=== PATIENT | female | born 1995 | race African-American/Black ===

== ENCOUNTER 2020-11-10 09:25 | Emergency (ER) | payer MEDICAID, OTHER ==
[2020-11-10 09:32] VITALS: BP 128/85
[2020-11-10] MEDS ORDERED: IBUP-1780 PO (09:46)
[2020-11-10] MEDS ORDERED: AMOX1TAB12 PO (09:46)
[2020-11-10] MEDS ORDERED: TRM50T PO (09:46)
--- NOTE | 2020-11-10 09:47 | ED EENT ---
History of Present Illness General Chief Complaint: Dental Problems/Pain Stated Complaint: TOOTH PAIN Nursing Triage Note: Lower molar on left side is broken. Has been causing pain x 1 month, worsening x 4 days. Is having trouble seeing a dentist due to finances. Source: patient History of Present Illness Date Seen by Provider: November 10, 2020 Time Seen by Provider: 09:26 Initial Comments 25 yo female presenting with complaint of pain to left lower mandible from a broken molar. She states the tooth has been broken for more than a year but it was not hurting. Then in the last month it started to hurt and it has been much worse in last 4 days. She has had no fever or chills. She has not been able to see a dentist due to finances and states she has no way to drive to [place] to the [facility] Dental clinic. She denies allergies to medicines. She does take Depo- provera shot for control and is HIV positive but undetectable due to taking antiretroviral medication. She has been trying OTC meds such as ibu profen, acetaminophen and orajel without significant improvement. Timing/Duration: gradual Severity: severe Location: dental Prearrival Treatment: over the counter meds Associated Symptoms: No change in hearing, No cough, No drooling, No ear drainage, No facial pain/swelling, No fever, No malaise, No nasal congestion/drainage, No poor fluid intake, No poor solids intake, No sinus infection, No sore throat; tooth pain; No voice change Allergies and Home Medications Allergies Coded Allergies: No Known Drug Allergies (Unverified , 11/10/20) Home Medications Amoxicillin/Potassium Clav 1 Each Tablet, 1 EACH PO BID Prescribed by: JADEN AVERY on 11/10/20 0946 Ibuprofen 800 Mg Tablet, 800 MG PO Q8H PRN for PAIN Prescribed by: JADEN AVERY on 11/10/20 0946 Tramadol HCl 50 Mg Tablet, 50 MG PO Q6H PRN for PAIN-SEVERE (8-10) Prescribed by: JADEN AVERY on 11/10/20 0947 Patient Home Medication List Home Medication List Reviewed: Yes Review of Systems Review of Systems Constitutional: No chills, No fever Eyes: No Symptoms Reported Ears: No Symptoms Reported Nose: no symptoms reported Mouth: see HPI Throat: no symptoms reported Respiratory: no symptoms reported Cardiovascular: no symptoms reported Gastrointestinal: no symptoms reported Musculoskeletal: no symptoms reported Skin: no symptoms reported Neurological: No Symptoms Reported Past Krdgkbf-Ogaqjv-Lnxpyx Hx Past Med/Social Hx: Reviewed Nursing Past Med/Soc Hx Patient Social History Recent Infectious Disease Expo: No Past Medical History Respiratory: No Cardiac: No Neurological: No HIV/AIDS: Yes (undetectable on meds) Genitourinary: No Gastrointestinal: No Musculoskeletal: No Endocrine: No HEENT: No Cancer: No Physical Exam Vital Signs Vital Signs - First Documented 11/10/20 09:32 Temp 37.0 Pulse 87 Resp 16 B/P (MAP) 128/85 (99) Pulse Ox 97 Height, Weight, BMI Height: '" Weight: lbs. oz. 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 Counseled to take acetaminophen for additional pain control. Call to get in with dentist as soon as possible for definitive care. Departure Impression Primary Impression: Pain due to dental caries Additional Impression: Fracture of tooth enamel and dentin Disposition: HOME, SELF-CARE Condition: Stable Departure-Patient Inst. Decision time for Depature: 09:42 Referrals: [facility] [place] Primary Care Physician Patient Instructions: Dental Pain ED Add. Discharge Instructions: Take the full course of antibiotics to treat for dental infection. Use the pain medicine to help with more severe pain. You may continue with Ibuprofen for inflammation and swelling and Acetaminophen for additional pain effect. Call [facility] Thursday about getting set up with dentist or see dentist of your choice to get definitive care for your tooth. All discharge instructions reviewed with patient and/or family. Voiced understanding. Scripts Tramadol HCl (Tramadol HCl) 50 Mg Tablet 50 MG PO Q6H PRN for PAIN-SEVERE (8-10) for 5 Days, #20 TAB 0 Refills Prov: JADEN AVERY MD 11/10/20 Ibuprofen (Ibuprofen) 800 Mg Tablet 800 MG PO Q8H PRN for PAIN for 10 Days, #30 TAB 0 Refills Prov: JADEN AVERY MD 11/10/20 Amoxicillin/Potassium Clav (Amox Tr-K Clv 875-125 mg Tab) 1 Each Tablet 1 EACH PO BID for dental abscess for 10 Days, #20 TAB 0 Refills Prov: JADEN AVERY MD 11/10/20 Work/School Note: Work Release Form Date Seen in the Emergency Department: November 10, 2020 Return to Work: November 12, 2020 Restrictions: No Restrictions Images Mouth/Nose 1 - Caries, Fracture Tooth, Swelling, Tenderness Progress gums are swollen over part of the fractured tooth with dental caries and tenderness to palpation. JADEN AVERY MD November 10, 2020 09:47
== END 2020-11-10 09:50 | disposition home or self-care (01) ==
LOC: ER FS 09:29
DX: K03.81 Cracked tooth (principal); K02.9 Dental caries, unspecified; Z21 Asymptomatic human immunodeficiency virus [HIV] infection status; Z79.3 Long term (current) use of hormonal contraceptives; Z91.120 Patient's intentional underdosing of medication regimen due to financial hardship
CPT/HCPCS: 99282

== ENCOUNTER 2021-05-27 12:08 | Emergency (ER) | payer MEDICAID ==
[~2021-05-27] VITALS: Ht 170.2 cm; Wt 62.6 kg
[~2021-05-27 12:08] MED LIST: AMOX1TAB12 PO; IBUP-1780 PO; TRM50T PO
[2021-05-27] MEDS ORDERED: KETOROLAC 30 MG/ML VIAL IVP STA (12:24)
[2021-05-27] MEDS ORDERED: LACTATED RINGERS 1,000 ML IV ONE (12:30)
--- NOTE | 2021-05-27 12:31 | ED Abdominal Pain ---
General Chief Complaint: Abdominal/GI Problems Stated Complaint: RT ABD PAIN; FEVER; HEADACHE Source of Information: Patient Exam Limitations: No Limitations History of Present Illness Date Seen by Provider: May 27, 2021 Time Seen by Provider: 12:11 Initial Comments 25-year-old female with past medical history of HIV that is well controlled with an undetectable viral load coming in due to right flank/abdominal pain and fever. Symptoms started yesterday. Pain is intermittent, throbbing, moderate. Has associated nausea but no vomiting. Denies ever having pain like this before. Had a UTI in her but never has had a kidney infection. Denies any history of kidney stones. Has never had any abdominal surgeries in the past other than 3 C-sections. Tried ibuprofen and Tylenol for the pain yesterday but no doses today. Said her temperature has been up to 101 as recently as today with fever starting yesterday. Is otherwise denying any cough, shortness of breath, vomiting, diarrhea, dysuria, chest pain, weakness, numbness, rash, or any other concerns. Of note, had a COVID Moderna vaccine x1 last year and the flu vaccine 3 weeks ago. Allergies and Home Medications Allergies Coded Allergies: No Known Drug Allergies (Unverified , 11/10/20) Patient Home Medication List Home Medication List Reviewed: Yes Amoxicillin/Potassium Clav (Amox Tr-K Clv 875-125 mg Tab) 1 Each Tablet, 1 EACH PO BID Prescribed by: JADEN AVERY on 11/10/20 09 Cefdinir (Cefdinir) 300 Mg Capsule, 300 MG PO BID Prescribed by: YENNI DEMPSEY on 05/27/21 1427 Ibuprofen (Ibuprofen) 800 Mg Tablet, 800 MG PO Q8H PRN for PAIN Prescribed by: JADEN AVERY on 11/10/20 0949 Tramadol HCl (Tramadol HCl) 50 Mg Tablet, 50 MG PO Q6H PRN for PAIN-SEVERE (8- 10) Prescribed by: JADEN AVERY on 11/10/20 0966 Review of Systems Review of Systems Constitutional: No chills; fever EENTM: No Blurred Vision Respiratory: Denies Cough, Denies Shortness of Air Cardiovascular: Denies Chest Pain Gastrointestinal: Abdominal Pain; Denies Diarrhea; Nausea; Denies Vomiting Genitourinary: Denies Burning; Flank Pain Musculoskeletal: no symptoms reported Skin: No rash Psychiatric/Neurological: No Symptoms Reported Endocrine: No Symptoms Reported Hematologic/Lymphatic: No Symptoms Reported All Other Systems Reviewed Negative Unless Noted: Yes Past Bxunusm-Ajayig-Fhpfsm Hx Patient Social History Tobacco Use?: Yes Tobacco type used: Cigarettes Smoking Status: Current Everyday Smoker Smokeless Tobacco Frequency: Never a User Use of E-Cig and/or Vaping dev: No Use of E-Cig and/or Vaping Lex: Never a User Substance use?: No Alcohol Use?: No Pt feels they are or have been: No Immunizations Up To Date First/Initial COVID19 Vaccinat: "LAST YEAR SOME TIME" 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 oz. kg; BMI Method: General Appearance: WD/WN, no apparent distress HEENT: PERRL/EOMI, normal ENT inspection, pharynx normal Neck: non-tender, full range of motion, supple, normal inspection Respiratory: chest non-tender, lungs clear, normal breath sounds, no respiratory distress, no accessory muscle use Cardiovascular: regular rate, rhythm, no edema, no murmur Gastrointestinal: normal bowel sounds, soft; No distended, No guarding, No rebo und; tenderness (minimal R sided abd pain and R flank pain) Extremities: normal range of motion, non-tender, normal inspection, no pedal edema, no calf tenderness Back: normal inspection, no vertebral tenderness, CVA tenderness (R); No CVA tenderness (L) Neurologic/Psychiatric: no motor/sensory deficits, alert, normal mood/affect Skin: normal color, warm/dry Lymphatic: no adenopathy Procedures/Interventions Number of Sutures: 10 Progress/Results/Core Measures Results/Orders Lab Results Laboratory Tests Test 05/27/21 12:38 05/27/21 13:45 Range/Units Urine Color DARK YELLOW Urine Clarity TURBID Urine pH 6.0 5-9 Urine Specific [place] 1.025 H 1.016-1.022 Urine Protein TRACE H NEGATIVE Urine Glucose (UA) NEGATIVE NEGATIVE Urine Ketones 2+ H NEGATIVE Urine Nitrite POSITIVE H NEGATIVE Urine Bilirubin NEGATIVE NEGATIVE Urine Urobilinogen 1.0 < = 1.0 MG/DL Urine Leukocyte Esterase 1+ H NEGATIVE Urine RBC (Auto) 1+ H NEGATIVE Urine RBC 2-5 H /HPF Urine WBC 25-50 H /HPF Urine Squamous Epithelial Cells 5-10 /HPF Urine Crystals NONE /LPF Urine Bacteria LARGE H /HPF Urine Casts NONE /LPF Urine Mucus LARGE H /LPF Urine Culture Indicated YES White Blood Count 11.4 H 4.3-11.0 10^3/uL Red Blood Count 4.21 3.80-5.11 10^6/uL Hemoglobin 13.2 11.5-16.0 g/dL Hematocrit 40 35-52 % Mean Corpuscular Volume 95 80-99 fL Mean Corpuscular Hemoglobin 31 25-34 pg Mean Corpuscular Hemoglobin Concent 33 32-36 g/dL Red Cell Distribution Width 13.7 10.0-14.5 % Platelet Count 238 130-400 10^3/uL Mean Platelet Volume 10.3 9.0-12.2 fL Immature Granulocyte % (Auto) 0 % Neutrophils (%) (Auto) 78 H 42-75 % Lymphocytes (%) (Auto) 13 12-44 % Monocytes (%) (Auto) 9 0-12 % Eosinophils (%) (Auto) 0 0-10 % Basophils (%) (Auto) 0 0-10 % Neutrophils # (Auto) 8.9 H 1.8-7.8 X 10^3 Lymphocytes # (Auto) 1.5 1.0-4.0 X 10^3 Monocytes # (Auto) 1.1 H 0.0-1.0 X 10^3 Eosinophils # (Auto) 0.0 0.0-0.3 10^3/uL Basophils # (Auto) 0.0 0.0-0.1 10^3/uL Immature Granulocyte # (Auto) 0.0 0.0-0.1 10^3/uL Sodium Level 138 135-145 MMOL/L Potassium Level 3.9 3.6-5.0 MMOL/L Chloride Level 103 98-107 MMOL/L Carbon Dioxide Level 24 21-32 MMOL/L Anion Gap 11 5-14 MMOL/L Blood Urea Nitrogen 11 7-18 MG/DL Creatinine 0.74 0.60-1.30 MG/DL Estimat Glomerular Filtration Rate 115 BUN/Creatinine Ratio 15 Glucose Level 95 70-105 MG/DL Calcium Level 9.2 8.5-10.1 MG/DL Corrected Calcium 9.0 8.5-10.1 MG/DL Total Bilirubin 0.5 0.1-1.0 MG/DL Aspartate Amino Transf (AST/SGOT) 19 5-34 U/L Alanine Aminotransferase (ALT/SGPT) 13 0-55 U/L Alkaline Phosphatase 103 40-136 U/L Total Protein 7.3 6.4-8.2 GM/DL Albumin 4.2 3.2-4.5 GM/DL Lipase 13 8-78 U/L My Orders Orders - YENNI DEMPSEY MD Cbc With Automated Diff (05/27/21 12:24) Comprehensive Metabolic Panel (05/27/21 12:24) Lipase (05/27/21 12:24) Ua Culture If Indicated (05/27/21 12:24) Ed Iv/Invasive Line Start (05/27/21 12:24) Urine Bedside (05/27/21 12:24) Lactated Ringers (Lr 1000 Ml Iv Solution (05/27/21 12:30) Ketorolac Injection (Toradol Injection) (05/27/21 12:24) Iohexol Injection (Omnipaque 350 Mg/Ml 1 (05/27/21 12:45) Received Contrast (Hold Metformin- Contr (05/27/21 12:45) Sodium Chloride Flush (Catheter Flush Sy (05/27/21 12:45) Ns (Ivpb) (Sodium Chloride 0.9% Ivpb Bag (05/27/21 12:45) Urine Culture (05/27/21 12:38) Ceftriaxone (Rocephin) (05/27/21 14:00) Ceftriaxone (Rocephin) (05/27/21 14:00) Ct Abd/Pelvis Wo(Kidney Stone) (05/27/21 12:24) Medications Given in ED Current Medications Medications Dose Ordered Sig/Prashanth Route Start Time Stop Time Status Last Admin Dose Admin Lactated Ringer's 1,000 ml @ 0 mls/hr Q0M ONCE IV 05/27/21 12:30 05/27/21 12:31 DC 05/27/21 13:51 999 MLS/HR Vital Signs/I&O 05/27/21 12:15 Temp 37.8 Pulse 87 Resp 17 B/P (MAP) 127/79 (95) O2 Delivery Room Air Progress Progress Note : Progress Note 25-year-old female with above history coming in due to fever along with right flank and right-sided abdominal pain. ABCs were intact and vitals were stable on presentation. Physical exam with right flank and right-sided abdominal pain but no signs of peritonitis. She is a little bit tachycardic up to 102 on exam, however she says she has had significantly decreased p.o. for the past couple days. An IV was placed and she was given a bolus of IV fluids as well as Toradol for pain control Labs significant for negative test, normal kidney function, normal electrolytes, and urinalysis concerning for infection. Given her right flank pain with fever clinically she has pyelonephritis. CT abdomen pelvis without contrast without any stone or other abnormality. She was given a dose of ceftriaxone for the infection and will go home with cefdinir for 10 days for her uncomplicated pyelonephritis. I believe she is stable for discharge. She was sent home with strict return precautions. Diagnostic Imaging Diagonstic Imaging: CT Plain Films/CT/US/NM/MRI: abdomen, pelvis Comments [facility] [place] NAME: [facility] REC#: [id number] PT STATUS: REG ER : 1995 PHYSICIAN: YENNI DEMPSEY MD ADMIT DATE: 05/27/21/ER FS Draft Date of Exam:05/27/21 CT ABD/PELVIS WO(KIDNEY STONE) EXAMINATION: CT abdomen and pelvis without contrast. TECHNIQUE: Multiple contiguous axial images were obtained through the abdomen and pelvis without the use of intravenous contrast. All CT scans use one or more of the following dose optimizing techniques: automated exposure control, MA and/or KvP adjustment based on patient size and exam type or iterative reconstruction. HISTORY: Right flank pain with fever. COMPARISON: None available. FINDINGS: Lung bases: The lung bases are clear. Solid organs: The liver is normal. The gallbladder is normal. There is no biliary ductal dilation. Pancreas is normal. Spleen is normal. Adrenal glands are normal. The kidneys are normal without visualized calculus or hydronephrosis. Bowel: The stomach and small bowel are normal without obstruction. The colon and appendix are normal. Peritoneum: There is no intraperitoneal free fluid or free air. No suspicious lymphadenopathy. Vasculature: Normal without aneurysm. Musculoskeletal: No suspicious osseous lesion or compression fracture. Pelvis: The uterus and adnexa are normal. The urinary bladder is normal. IMPRESSION: No acute abnormality in the abdomen or pelvis. No visualized renal calculus or hydronephrosis. Dictated on workstation # [id number] Dict: 05/27/211423 Trans: 05/27/211428 [id number] Interpreted by: RICHARD SALMERON DO Electronically signed by: Departure Impression Primary Impression: Pyelonephritis Disposition: 01 HOME, SELF-CARE Condition: Stable Departure-Patient Inst. Referrals: [facility] [place] (PCP/Family) Primary Care Physician Patient Instructions: Kidney Infection Add. Discharge Instructions: You were seen in the emergency department for right sided abdominal/flank pain. It does appear that you have a kidney infection. We gave you a dose of IV antibiotics, and we would like you to continue antibiotics for the next 10 days. Take ibuprofen 600 mg every 6 hours as needed for pain or fever. If you have pain on top of this and you can also take Tylenol 1000 mg every 6-8 hours with it. Your fever and pain should start to improve as the infection clears within the next couple of days. Scripts Cefdinir (Cefdinir) 300 Mg Capsule 300 MG PO BID for 10 Days, #20 CAP 0 Refills Prov: YENNI DEMPSEY MD 05/27/21 Work/School Note: Work Release Form Date Seen in the Emergency Department: May 27, 2021 Return to Work: May 29, 2021 Restrictions: Return-No Fever (24hrs) YENNI DEMPSEY MD May 27, 2021 12:31
[2021-05-27] MEDS ORDERED: HOLD METFORMIN - RECEIVED CONTRAST 20 ML VIAL IV SCH (12:45)
[2021-05-27] MEDS ORDERED: IOHEXOL 350 MG/ML 100 ML (OMNIPAQUE 350) VIAL IV ONE (12:45)
[2021-05-27] MEDS ORDERED: CATHETER FLUSH 10 ML SYR IV PRN (12:45)
[2021-05-27] MEDS ORDERED: NS 100 ML (IVPB) BAG IV ONE (12:45)
[2021-05-27 12:47] LABS: BILIRUBIN,URINE NEGATIVE (NEGATIVE); CLARITY,URINE TURBID; GLUCOSE, URINE (UA) NEGATIVE (NEGATIVE); KETONES,URINE 2+ (NEGATIVE); NITRITE,URINE POSITIVE (NEGATIVE); PROTEIN,URINE TRACE (NEGATIVE)
[2021-05-27 13:00] LABS: BACTERIA,URINE LARGE /HPF; COLOR,URINE DARK YELLOW; WBC,URINE 25-50 /HPF
[2021-05-27 13:01] LABS: LEUKOCYTE ESTERASE ,URINE 1+ (NEGATIVE)
[2021-05-27] MEDS ORDERED: cefTRIAXone 1,000 MG VIAL IM ONE (14:00)
[2021-05-27] MEDS ORDERED: cefTRIAXone 2,000 MG in NS (IVPB) 50 ML IV ONE (14:00)
[2021-05-27 14:08] LABS: BASOPHILS % (AUTO) 0 % (0-10); EOSINOPHILS % (AUTO) 0 % (0-10); HEMATOCRIT 40 % (35-52); HEMOGLOBIN 13.2 g/dL (11.5-16.0); LYMPHOCYTES # (AUTO) 1.5 X 10^3 (1.0-4.0); LYMPHOCYTES % (AUTO) 13 % (12-44); MEAN CORPUSCULAR HEMOGLOBIN 31 pg (25-34); MEAN CORPUSCULAR HGB CONC 33 g/dL (32-36); MEAN CORPUSCULAR VOLUME 95 fL (80-99); MEAN PLATELET VOLUME 10.3 fL (9.0-12.2); MONOCYTES # (AUTO) 1.1 X 10^3 (0.0-1.0); MONOCYTES % (AUTO) 9 % (0-12); NEUTROPHILS # (AUTO) 8.9 X 10^3 (1.8-7.8); NEUTROPHILS % (AUTO) 78 % (42-75); PLATELET COUNT 238 10^3/uL (130-400); WHITE BLOOD COUNT 11.4 10^3/uL (4.3-11.0)
[2021-05-27 14:19] LABS: BILIRUBIN,TOTAL 0.5 MG/DL (0.1-1.0); CALCIUM 9.2 MG/DL (8.5-10.1); CREATININE SERUM 0.74 MG/DL (0.60-1.30); POTASSIUM 3.9 MMOL/L (3.6-5.0)
[2021-05-27 14:20] LABS: ALBUMIN 4.2 GM/DL (3.2-4.5); TOTAL PROTEIN 7.3 GM/DL (6.4-8.2)
[2021-05-27] MEDS ORDERED: CEFD300C3 PO (14:27)
--- NOTE | 2021-05-27 14:30 | Diagnostic Imaging Report ---
EXAMINATION: CT abdomen and pelvis without contrast. TECHNIQUE: Multiple contiguous axial images were obtained through the abdomen and pelvis without the use of intravenous contrast. All CT scans use one or more of the following dose optimizing techniques: automated exposure control, MA and/or KvP adjustment based on patient size and exam type or iterative reconstruction. HISTORY: Right flank pain with fever. COMPARISON: None available. FINDINGS: Lung bases: The lung bases are clear. Solid organs: The liver is normal. The gallbladder is normal. There is no biliary ductal dilation. Pancreas is normal. Spleen is normal. Adrenal glands are normal. The kidneys are normal without visualized calculus or hydronephrosis. Bowel: The stomach and small bowel are normal without obstruction. The colon and appendix are normal. Peritoneum: There is no intraperitoneal free fluid or free air. No suspicious lymphadenopathy. Vasculature: Normal without aneurysm. Musculoskeletal: No suspicious osseous lesion or compression fracture. Pelvis: The uterus and adnexa are normal. The urinary bladder is normal. IMPRESSION: No acute abnormality in the abdomen or pelvis. No visualized renal calculus or hydronephrosis. Dictated by: Dictated on workstation # [id number]
[2021-05-27 14:59] VITALS: BP 127/72
== END 2021-05-27 14:56 | disposition home or self-care (01) ==
LOC: EDUNIT# 12:08 → ER FS 12:11
DX: N12 Tubulo-interstitial nephritis, not specified as acute or chronic (principal); F17.210 Nicotine dependence, cigarettes, uncomplicated
CPT/HCPCS: 36415; 74176; 80053; 81000; 83690; 84703; 85025; 87077; 87088; 87186

== ENCOUNTER → 2021-06-04 | Outpatient (CLI) | payer MEDICAID ==
[~2021-06-04] MED LIST changes: +CEFD300C3 PO
--- NOTE | 2021-06-04 10:13 | Diagnostic Imaging Report ---
INDICATION: Ganglion cyst. COMPARISON: None FINDINGS: 3 views of the left foot demonstrate no acute fracture or dislocation. There are no focal osseous lesions. There is no soft tissue swelling. Joint spaces are well maintained. No radiopaque foreign bodies are seen. IMPRESSION: No acute fractures or dislocations of the left foot. Dictated by: Dictated on workstation # [id number]
== END ==
LOC: RAD FS 09:49
PROVIDERS: ATTEND Nurse Practitioner
DX: M67.472 Ganglion, left ankle and foot (principal)
CPT/HCPCS: 73630

== ENCOUNTER 2021-09-19 08:20 | Emergency (ER) | payer MEDICAID ==
[~2021-09-19] VITALS: Ht 170 cm; Wt 60.7 kg
--- NOTE | 2021-09-19 08:30 | ED GI ---
General Chief Complaint: Abdominal/GI Problems Stated Complaint: ABD PAIN; VOMITING History of Present Illness Date Seen by Provider: Sep 19, 2021 Time Seen by Provider: 08:26 Initial Comments 26-year-old female presents with some vague lower abdominal pain and vomiting. She reports the symptoms have been there for 6 days. That she has had difficulty with hard stools for 6 days. She reports that about 30 minutes 45 minutes after she eats she will vomit. Patient denies any fever, chills. Patient was seen at [facility] yesterday where they did a test that was negative. Patient denies any fever, chills or any other systemic complaints. Patient does have an HIV history. Has been undetectable for at least 4 years. Allergies and Home Medications Allergies Coded Allergies: No Known Drug Allergies (Unverified , 11/10/20) Patient Home Medication List Home Medication List Reviewed: Yes Amoxicillin/Potassium Clav (Amox Tr-K Clv 875-125 mg Tab) 1 Each Tablet, 1 EACH PO BID Prescribed by: JADEN AVERY on 11/10/20 0946 Cefdinir (Cefdinir) 300 Mg Capsule, 300 MG PO BID Prescribed by: YENNI DEMPSEY on 05/27/21 1427 Ibuprofen (Ibuprofen) 800 Mg Tablet, 800 MG PO Q8H PRN for PAIN Prescribed by: JADEN AVERY on 11/10/20 0946 Tramadol HCl (Tramadol HCl) 50 Mg Tablet, 50 MG PO Q6H PRN for PAIN-SEVERE (8- 10) Prescribed by: JADEN AVERY on 11/10/20 0947 Review of Systems Review of Systems Constitutional: No chills, No fever EENTM: No Symptoms Reported Respiratory: No Symptoms Reported Cardiovascular: No Symptoms Reported Gastrointestinal: Abdominal Pain, Constipated, Diarrhea, Vomiting Musculoskeletal: no symptoms reported Skin: no symptoms reported Psychiatric/Neurological: No Symptoms Reported Endocrine: No Symptoms Reported Hematologic/Lymphatic: No Symptoms Reported Past Ipfjknu-Pehigf-Sucpmx Hx Immunizations Up To Date First/Initial COVID19 Vaccinat: "LAST YEAR SOME TIME" Seasonal Allergies Seasonal Allergies: No Past Medical History Surgeries: Yes Section Respiratory: No Cardiac: No Neurological: No HIV/AIDS: Yes (undetectable on meds) Genitourinary: No Gastrointestinal: No Musculoskeletal: No Endocrine: No HEENT: No Cancer: No Psychosocial: No Integumentary: No Blood Disorders: Yes (HIV) Adverse Reaction/Blood Tranf: No Physical Exam Vital Signs Vital Signs - First Documented 09/19/21 08:44 Temp 36.9 Pulse 85 Resp 16 B/P (MAP) 130/95 (107) Pulse Ox 97 O2 Delivery Room Air Capillary Refill : Height/Weight/BMI Height: '" Weight: lbs. oz. kg; 21.00 BMI Method: General Appearance: WD/WN, no apparent distress Respiratory: lungs clear, normal breath sounds Cardiovascular: normal peripheral pulses, regular rate, rhythm Gastrointestinal: soft, tenderness (mild diffuse, lower greater than upper ) Extremities: normal range of motion Back: normal inspection Neurologic/Psychiatric: alert, normal mood/affect, oriented x 3 Skin: normal color, warm/dry Progress/Results/Core Measures Results/Orders Lab Results Laboratory Tests Test 09/19/21 08:40 Range/Units White Blood Count 7.3 4.3-11.0 10^3/uL Red Blood Count 4.12 3.80-5.11 10^6/uL Hemoglobin 13.1 11.5-16.0 g/dL Hematocrit 38 35-52 % Mean Corpuscular Volume 93 80-99 fL Mean Corpuscular Hemoglobin 32 25-34 pg Mean Corpuscular Hemoglobin Concent 34 32-36 g/dL Red Cell Distribution Width 13.3 10.0-14.5 % Platelet Count 237 130-400 10^3/uL Mean Platelet Volume 10.2 9.0-12.2 fL Immature Granulocyte % (Auto) 0 % Neutrophils (%) (Auto) 57 42-75 % Lymphocytes (%) (Auto) 34 12-44 % Monocytes (%) (Auto) 7 0-12 % Eosinophils (%) (Auto) 1 0-10 % Basophils (%) (Auto) 1 0-10 % Neutrophils # (Auto) 4.2 1.8-7.8 10^3/uL Lymphocytes # (Auto) 2.5 1.0-4.0 10^3/uL Monocytes # (Auto) 0.5 0.0-1.0 10^3/uL Eosinophils # (Auto) 0.1 0.0-0.3 10^3/uL Basophils # (Auto) 0.0 0.0-0.1 10^3/uL Immature Granulocyte # (Auto) 0.0 0.0-0.1 10^3/uL Urine Color RED H Urine Clarity TURBID Urine pH 7.5 5-9 Urine Specific [place] 1.020 1.016-1.022 Urine Protein 2+ H NEGATIVE Urine Glucose (UA) NEGATIVE NEGATIVE Urine Ketones NEGATIVE NEGATIVE Urine Nitrite NEGATIVE NEGATIVE Urine Bilirubin NEGATIVE NEGATIVE Urine Urobilinogen 1.0 < = 1.0 MG/DL Urine Leukocyte Esterase TRACE H NEGATIVE Urine RBC (Auto) 3+ H NEGATIVE Urine RBC TNTC H /HPF Urine WBC 0-2 /HPF Urine Squamous Epithelial Cells RARE /HPF Urine Crystals PRESENT H /LPF Urine Amorphous Sediment FEW DANIEL PHOSPHATE H /LPF Urine Bacteria TRACE /HPF Urine Casts NONE /LPF Urine Mucus LARGE H /LPF Urine Culture Indicated NO Urine Test NEGATIVE NEGATIVE Sodium Level 139 135-145 MMOL/L Potassium Level 3.6 3.6-5.0 MMOL/L Chloride Level 106 98-107 MMOL/L Carbon Dioxide Level 23 21-32 MMOL/L Anion Gap 10 5-14 MMOL/L Blood Urea Nitrogen 18 7-18 MG/DL Creatinine 0.77 0.60-1.30 MG/DL Estimat Glomerular Filtration Rate 108 BUN/Creatinine Ratio 23 Glucose Level 90 70-105 MG/DL Calcium Level 9.0 8.5-10.1 MG/DL Corrected Calcium 8.8 8.5-10.1 MG/DL Total Bilirubin 0.2 0.1-1.0 MG/DL Aspartate Amino Transf (AST/SGOT) 17 5-34 U/L Alanine Aminotransferase (ALT/SGPT) 11 0-55 U/L Alkaline Phosphatase 117 40-136 U/L C-Reactive Protein < 0.30 <0.50 MG/DL Total Protein 7.1 6.4-8.2 GM/DL Albumin 4.3 3.2-4.5 GM/DL My Orders Orders - GERMAN,PAWEL L DO Cbc With Automated Diff (09/19/21 08:33) Comprehensive Metabolic Panel (09/19/21 08:33) Hcg,Qualitative Urine (09/19/21 08:33) Ua Culture If Indicated (09/19/21 08:33) Crp Fs (09/19/21 08:33) Abdomen Flat & Upright/Decub (09/19/21 08:33) Vital Signs/I&O 09/19/21 09/19/21 08:44 09:48 Temp 36.9 36.9 Pulse 85 85 Resp 16 16 B/P (MAP) 130/95 (107) 130/95 Pulse Ox 97 97 O2 Delivery Room Air Room Air Progress Progress Note : Progress Note Patient's labs show no acute findings. Patient's exam shows moderate stool which is consistent with her history of difficulty with bowel movements over the last 6 days. Patient symptoms likely result of some constipation. Recommended she drink plenty of fluids start MiraLAX 3-4 times daily until soft daily stool then as needed. Patient stable and discharged Departure Impression Primary Impression: Constipation Qualified Codes: K59.00 - Constipation, unspecified Disposition: HOME, SELF-CARE Condition: Stable Departure-Patient Inst. Referrals: [facility] [place] (PCP/Family) Primary Care Physician Patient Instructions: Constipation, Adult ED Add. Discharge Instructions: MiraLAX, 1 capful 3-4 times daily until soft daily stool then as needed. Drink plenty of fluids. Follow-up with your primary care provider next week if symptoms have not improved All discharge instructions reviewed with patient and/or family. Voiced understanding. PAWEL GERMAN DO Sep 19, 2021 08:30
[2021-09-19 08:54] LABS: BILIRUBIN,URINE NEGATIVE (NEGATIVE); COLOR,URINE RED; GLUCOSE, URINE (UA) NEGATIVE (NEGATIVE); KETONES,URINE NEGATIVE (NEGATIVE); LEUKOCYTE ESTERASE ,URINE TRACE (NEGATIVE); PH,URINE 7.5 (5-9); PROTEIN,URINE 2+ (NEGATIVE)
[2021-09-19 09:07] LABS: CLARITY,URINE TURBID; RBC,URINE TNTC /HPF; WBC,URINE 0-2 /HPF
[2021-09-19 09:08] LABS: AMORPHOUS SEDIMENT,UR FEW AMOR PHOSPHATE /LPF; BACTERIA,URINE TRACE /HPF; SQUAMOUS EPITHELIAL CELL,UR RARE /HPF
[2021-09-19 09:10] LABS: NITRITE,URINE NEGATIVE (NEGATIVE)
[2021-09-19 09:16] LABS: BASOPHILS % (AUTO) 1 % (0-10); EOSINOPHILS # (AUTO) 0.1 10^3/uL (0.0-0.3); EOSINOPHILS % (AUTO) 1 % (0-10); HEMATOCRIT 38 % (35-52); HEMOGLOBIN 13.1 g/dL (11.5-16.0); LYMPHOCYTES # (AUTO) 2.5 10^3/uL (1.0-4.0); LYMPHOCYTES % (AUTO) 34 % (12-44); MEAN CORPUSCULAR HEMOGLOBIN 32 pg (25-34); MEAN CORPUSCULAR HGB CONC 34 g/dL (32-36); MEAN CORPUSCULAR VOLUME 93 fL (80-99); MEAN PLATELET VOLUME 10.2 fL (9.0-12.2); MONOCYTES # (AUTO) 0.5 10^3/uL (0.0-1.0); MONOCYTES % (AUTO) 7 % (0-12); NEUTROPHILS # (AUTO) 4.2 10^3/uL (1.8-7.8); NEUTROPHILS % (AUTO) 57 % (42-75); PLATELET COUNT 237 10^3/uL (130-400); WHITE BLOOD COUNT 7.3 10^3/uL (4.3-11.0)
--- NOTE | 2021-09-19 09:17 | Diagnostic Imaging Report ---
EXAMINATION: Abdomen 2 view HISTORY: vomiting, lower abd pain COMPARISON: 05/27/2021 FINDINGS: There is a moderate amount of gas and stool throughout the colon. Nonobstructive bowel gas pattern. No radiopaque foreign body. The lung bases are clear. The osseous structures are intact. IMPRESSION: Moderate stool burden without other acute abnormality in the abdomen. Dictated by: Dictated on workstation # [id number]
[2021-09-19 09:33] LABS: POTASSIUM 3.6 MMOL/L (3.6-5.0); SODIUM 139 MMOL/L (135-145)
[2021-09-19 09:34] LABS: ALANINE AMINOTRANSFERASE 11 U/L (0-55); ALBUMIN 4.3 GM/DL (3.2-4.5); ALKALINE PHOSPHATASE 117 U/L (40-136); BILIRUBIN,TOTAL 0.2 MG/DL (0.1-1.0); BUN/CREATININE RATIO 23; CARBON DIOXIDE 23 MMOL/L (21-32); CHLORIDE 106 MMOL/L (98-107); CREATININE SERUM 0.77 MG/DL (0.60-1.30); GFR ESTIMATED 108; GLUCOSE 90 MG/DL (70-105); TOTAL PROTEIN 7.1 GM/DL (6.4-8.2)
[2021-09-19 09:48] VITALS: BP 130/95
== END 2021-09-19 09:49 | disposition home or self-care (01) ==
LOC: EDUNIT# 08:20 → ER FS 08:21
DX: K59.00 Constipation, unspecified (principal); Z21 Asymptomatic human immunodeficiency virus [HIV] infection status; Z32.02 Encounter for pregnancy test, result negative
CPT/HCPCS: 36415; 74019; 80053; 81000; 84703; 85025; 86141

== ENCOUNTER 2021-11-15 20:56 | Emergency (ER) | payer OTHER, MEDICAID ==
[~2021-11-15] VITALS: Ht 170 cm; Wt 61.2 kg
[2021-11-15] MEDS ORDERED: RX-CYCLOBENZAPRINE 10 MG (FLEXERIL) TAB PPK#3 PO STA (21:15)
[2021-11-15] MEDS ORDERED: ACETAMINOPHEN 500 MG TAB (TYLENOL) PO ONE (21:15)
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
[2021-11-15 21:21] VITALS: BP 138/95
== END 2021-11-15 21:21 | disposition home or self-care (01) ==
LOC: EDUNIT# 20:56 → ER FS 20:57
DX: S13.4XXA Sprain of ligaments of cervical spine, initial encounter (principal); F17.210 Nicotine dependence, cigarettes, uncomplicated; V49.09XA Driver injured in collision with other motor vehicles in nontraffic accident, initial encounter; Y92.481 Parking lot as the place of occurrence of the external cause
CPT/HCPCS: 99283

== ENCOUNTER 2021-12-06 21:30 | Emergency (ER) | payer OTHER, MEDICAID ==
[~2021-12-06] VITALS: Ht 170.2 cm; Wt 61.2 kg
[2021-12-06 21:32] VITALS: BP 127/92
[2021-12-06] MEDS ORDERED: ONDANSETRON 4 MG (ZOFRAN) ORAL DISSOLVE TAB PO STA (21:43)
[2021-12-06] MEDS ORDERED: KETOROLAC 60 MG/2 ML VIAL IM STA (21:43)
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
--- NOTE | 2021-12-06 22:17 | Diagnostic Imaging Report ---
PROCEDURE: CT head without contrast. TECHNIQUE: Multiple contiguous axial images were obtained through the brain without the use of intravenous contrast. Auto Exposure Controls were utilized during the CT exam to meet ALARA standards for radiation dose reduction. INDICATION: Left-sided headache after injury. COMPARISON: None available. FINDINGS: No hyperdense hemorrhage or space-occupying mass. No hydrocephalus or midline shift. The basilar cisterns are normal. [place]-white matter differentiation is well preserved. The mastoid air cells are clear. Paranasal sinuses are normal. No focal osseous abnormality of the calvarium. IMPRESSION: 1. No acute intracranial process. 2. No skull fracture. Dictated by: Dictated on workstation # [id number]
== END 2021-12-06 22:35 | disposition home or self-care (01) ==
LOC: ER FS 21:30 → EDUNIT# 21:30 → ER FS 22:35
DX: S09.90XA Unspecified injury of head, initial encounter (principal); F17.210 Nicotine dependence, cigarettes, uncomplicated; W22.8XXA Striking against or struck by other objects, initial encounter; Y92.512 Supermarket, store or market as the place of occurrence of the external cause; Y99.0 Civilian activity done for income or pay
CPT/HCPCS: 70450

== ENCOUNTER 2022-02-06 18:51 | Emergency (ER) | payer MEDICAID ==
[2022-02-06 19:35] LABS: BACTERIA,URINE LARGE /HPF; BILIRUBIN,URINE 1+ (NEGATIVE); CLARITY,URINE CLOUDY; COLOR,URINE DARK YELLOW; GLUCOSE, URINE (UA) NEGATIVE (NEGATIVE); KETONES,URINE TRACE (NEGATIVE); LEUKOCYTE ESTERASE ,URINE NEGATIVE (NEGATIVE); NITRITE,URINE NEGATIVE (NEGATIVE); PH,URINE 5.5 (5-9); PROTEIN,URINE TRACE (NEGATIVE); WBC,URINE 25-50 /HPF
[2022-02-06 19:52] VITALS: BP 125/77
--- NOTE | 2022-02-06 19:53 | ED Abdominal Pain ---
General Chief Complaint: Abdominal/GI Problems Stated Complaint: ABD PAIN Nursing Triage Note: Pt complaining of abdominal pain that started around noon today Source of Information: Patient Exam Limitations: No Limitations History of Present Illness Date Seen by Provider: Feb 06, 2022 Time Seen by Provider: 19:01 Initial Comments 26-year-old female patient complaining of suprapubic and left-sided abdominal pain since noon although sharp pain without nausea, radiation, diarrhea and constipation, fever and chills that getting better now. Patient denies dysuria, urinary frequency, vaginal bleeding or discharge. Patient states her LMP was about 2 months ago and she did not have any home test. Patient states she used to be on Depo shot but did not renew her shot since September. Patient states she has history of HIV for the last 5 years and taking antiviral medication without having infection or problem.. Allergies and Home Medications Allergies Coded Allergies: No Known Drug Allergies (Unverified , 11/10/20) Patient Home Medication List Home Medication List Reviewed: Yes Amoxicillin/Potassium Clav (Amox Tr-K Clv 875-125 mg Tab) 1 Each Tablet, 1 EACH PO BID Prescribed by: JADEN AVERY on 11/10/20 0946 Cefdinir (Cefdinir) 300 Mg Capsule, 300 MG PO BID Prescribed by: YENNI DEMPSEY on 05/27/21 142 Ibuprofen (Ibuprofen) 800 Mg Tablet, 800 MG PO Q8H PRN for PAIN Prescribed by: JADEN AVERY on 11/10/20 0946 Sulfamethoxazole/Trimethoprim (Bactrim Ds Tablet) 1 Each Tablet, 1 EACH PO BID Prescribed by: Bindu conner on 02/06/221956 Tramadol HCl (Tramadol HCl) 50 Mg Tablet, 50 MG PO Q6H PRN for PAIN-SEVERE (8- 10) Prescribed by: JADEN AVERY on 11/10/20 0947 Review of Systems Review of Systems Constitutional: no symptoms reported EENTM: No Symptoms Reported Respiratory: No Symptoms Reported Cardiovascular: No Symptoms Reported Gastrointestinal: See HPI Genitourinary: No Symptoms Reported Musculoskeletal: no symptoms reported Skin: no symptoms reported Psychiatric/Neurological: No Symptoms Reported Endocrine: No Symptoms Reported Hematologic/Lymphatic: See HPI All Other Systems Reviewed Negative Unless Noted: Yes Past Dwbahfx-Erkgnr-Cddirw Hx Patient Social History Tobacco Use?: No Use of E-Cig and/or Vaping dev: No Substance use?: No Alcohol Use?: No Pt feels they are or have been: No Immunizations Up To Date First/Initial COVID19 Vaccinat: Moderna Seasonal Allergies Seasonal Allergies: No Past Medical History Surgeries: Yes Section Respiratory: No Cardiac: No Neurological: No HIV/AIDS: Yes (undetectable on meds) Genitourinary: No Gastrointestinal: No Musculoskeletal: No Endocrine: No HEENT: No Cancer: No Psychosocial: No Integumentary: No Blood Disorders: Yes (HIV) Adverse Reaction/Blood Tranf: No Physical Exam Vital Signs Vital Signs - First Documented 02/06/22 18:54 Temp 37.1 Pulse 88 Resp 16 B/P (MAP) 125/77 (93) Pulse Ox 98 O2 Delivery Room Air Capillary Refill : Less Than 3 Seconds Height/Weight/BMI Height: '" Weight: lbs. oz. kg; 21.00 BMI Method: General Appearance: WD/WN, no apparent distress HEENT: PERRL/EOMI, normal ENT inspection Neck: non-tender, full range of motion Respiratory: chest non-tender, lungs clear, normal breath sounds, no respiratory distress, no accessory muscle use Cardiovascular: regular rate, rhythm, no edema, no gallop, no JVD, no murmur Gastrointestinal: normal bowel sounds, non tender, soft, no organomegaly, no pulsatile mass Extremities: normal range of motion Back: normal inspection, no CVA tenderness Neurologic/Psychiatric: alert, normal mood/affect Skin: normal color Progress/Results/Core Measures Results/Orders Lab Results Laboratory Tests Test 02/06/22 18:56 Range/Units Urine Color DARK YELLOW Urine Clarity CLOUDY H Urine pH 5.5 5-9 Urine Specific Hillister >=1.030 1.016-1.022 Urine Protein TRACE H NEGATIVE Urine Glucose (UA) NEGATIVE NEGATIVE Urine Ketones TRACE H NEGATIVE Urine Nitrite NEGATIVE NEGATIVE Urine Bilirubin 1+ H NEGATIVE Urine Urobilinogen 1.0 < = 1.0 MG/DL Urine Leukocyte Esterase NEGATIVE NEGATIVE Urine RBC (Auto) NEGATIVE NEGATIVE Urine RBC NONE /HPF Urine WBC 25-50 H /HPF Urine Squamous Epithelial Cells 5-10 /HPF Urine Crystals NONE /LPF Urine Bacteria LARGE H /HPF Urine Casts NONE /LPF Urine Mucus LARGE H /LPF Urine Culture Indicated YES Urine Test NEGATIVE NEGATIVE My Orders Orders - BINDU CONNER MD Ua Culture If Indicated (02/06/22 19:06) Hcg,Qualitative Urine (02/06/22 19:13) Urine Culture (02/06/22 18:56) Sulfamethoxazole/Trimet Ds Tab (Bactrim (02/06/22 20:00) Medications Given in ED Current Medications Medications Dose Ordered Sig/Prashanth Route Start Time Stop Time Status Last Admin Dose Admin Trimethoprim/ Sulfamethoxazole 1 ea ONCE ONCE PO 02/06/22 20:00 02/06/22 20:01 02/06/22 19:52 1 EA Vital Signs/I&O 02/06/22 02/06/22 18:54 19:52 Temp 37.1 37.1 Pulse 88 88 Resp 16 16 B/P (MAP) 125/77 (93) 125/77 Pulse Ox 98 98 O2 Delivery Room Air Room Air Blood Pressure Mean: 93 Progress Progress Note : Progress Note Evaluation of patient in ER showed 26-year-old female patient with complaining of sudden onset of suprapubic and left-sided abdominal pain since noon that getting better at arrival to ER. Patient had unremarkable physical exam. test was negative and UA showed UTI. Patient treated with Bactrim in ER and prescription for Bactrim x7 days was given. Patient advised to follow-up with her [facility] for Depo shot. Departure Impression Primary Impression: Urinary tract infection Qualified Codes: N30.00 - Acute cystitis without hematuria Disposition: HOME, SELF-CARE Condition: Improved Departure-Patient Inst. Decision time for Depature: 19:56 Referrals: [facility] (PCP/Family) Primary Care Physician Patient Instructions: Urinary Tract Infections in Adults Add. Discharge Instructions: Drink plenty of liquid Take Tylenol or ibuprofen as needed for pain Empty your bladder often Follow-up with your primary care physician or return to ER as needed All discharge instructions reviewed with patient and/or family. Voiced understanding. Scripts Sulfamethoxazole/Trimethoprim (Bactrim Ds Tablet) 1 Each Tablet 1 EACH PO BID, #14 TAB Prov: BINDU CONNER MD 02/06/22 BINDU CONNER MD Feb 06, 2022 19:53
[2022-02-06] MEDS ORDERED: SULF1TAB38 PO (19:57)
[2022-02-06] MEDS ORDERED: TRIM/SULFAMETH 160/800 (SEPTRA DS) TAB PO ONE (20:00)
== END 2022-02-06 20:00 | disposition home or self-care (01) ==
LOC: EDUNIT# 18:51 → ER FS 18:52
DX: N39.0 Urinary tract infection, site not specified (principal); Z21 Asymptomatic human immunodeficiency virus [HIV] infection status; Z79.899 Other long term (current) drug therapy; Z28.310 Unvaccinated for COVID-19; Z32.02 Encounter for pregnancy test, result negative
CPT/HCPCS: 81000; 84703; 87077; 87088; 87186; 99283

== ENCOUNTER 2022-08-22 17:41 | Emergency (ER) | payer MEDICAID ==
[~2022-08-22] VITALS: Ht 170.2 cm; Wt 68.0 kg
[~2022-08-22 17:41] MED LIST changes: +SULF1TAB38 PO
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
[2022-08-22 19:22] VITALS: BP 131/94
== END 2022-08-22 19:25 | disposition home or self-care (01) ==
LOC: EDUNIT# 17:41 → ER 17:42
DX: S06.0X1A Concussion with loss of consciousness of 30 minutes or less, initial encounter (principal); R40.2362 Coma scale, best motor response, obeys commands, at arrival to emergency department; R40.2142 Coma scale, eyes open, spontaneous, at arrival to emergency department; R40.2252 Coma scale, best verbal response, oriented, at arrival to emergency department; F17.210 Nicotine dependence, cigarettes, uncomplicated; Z28.311 Partially vaccinated for COVID-19; V49.40XA Driver injured in collision with unspecified motor vehicles in traffic accident, initial encounter; Y92.410 Unspecified street and highway as the place of occurrence of the external cause
CPT/HCPCS: 70450